=== PATIENT | male | born 1965 | race Hispanic/Latino ===

== ENCOUNTER 2019-09-13 12:30 | Emergency (ER) | payer SELFPAY ==
[2019-09-13 13:16] VITALS: BP 159/87
[2019-09-13] MEDS ORDERED: KEFLEX PO ONE (13:22)
--- NOTE | 2019-09-13 13:30 | Emergency Department Report ---
ED General Adult HPI - General Chief complaint: Wound/Laceration Stated complaint: HAND INJURY Time Seen by Provider: 09/13/19 13:20 Source: patient Mode of arrival: Ambulatory Limitations: No Limitations - History of Present Illness Initial comments: The 3-year-old man states he accidentally stabbed himself with a "daggar" first webspace of his left hand. He stated that he was using the knife to "strip aluminum wires". He states that he did this at home and not at work. He states the amount of external blood loss was not great. However when the dressing was removed that triaged to was "pulsatile bleeding". Patient was brought back to the treatment area immediately. He actually had good hemostasis when I went to see him directly after triage. He did not have any significant bleeding at all. The wound was in the webspace and not with any proximity to significant vessels. -: Sudden Location: left, upper extremity Quality: aching Improves with: none Worsens with: none Associated Symptoms: denies other symptoms - Related Data Previous Rx's Medication Instructions Recorded Last Taken Type cephALEXin [Keflex] 500 mg PO Q6HR #20 capsule 09/13/19 Unknown Rx Allergies Allergy/AdvReac Type Severity Reaction Status Date / Time No Known Allergies Allergy Verified 09/13/19 12:54 ED Review of Systems ROS: Stated complaint: HAND INJURY Other details as noted in HPI Comment: All other systems reviewed and negative ED Past Medical Hx - Past Medical History Previous Medical History?: No - Surgical History Past Surgical History?: No - Social History Smoking Status: Never Smoker Substance Use Type: None - Medications Home Medications: Home Medications Medication Instructions Recorded Confirmed Last Taken Type cephALEXin [Keflex] 500 mg PO Q6HR #20 capsule 09/13/19 Unknown Rx ED Physical Exam - General Limitations: No Limitations General appearance: alert - Head Head exam: Present: atraumatic - Eye Eye exam: Absent: scleral icterus - ENT ENT exam: Present: normal exam - Neck Neck exam: Present: normal inspection - Respiratory Respiratory exam: Present: other (normal work of breathing) - GI/Abdominal GI/Abdominal exam: Absent: distended - Extremities Exam Extremities exam: Present: other (stab wound first left webspace, neurovascular exam of the hand is intact) - Neurological Exam Neurological exam: Present: CN II-XII intact. Absent: motor sensory deficit - Psychiatric Psychiatric exam: Present: normal affect, normal mood - Skin Skin exam: Present: warm, dry, intact, normal color. Absent: rash ED Course Vital Signs 09/13/19 13:16 Pulse Rate 83 Respiratory 16 Rate Blood Pressure 159/87 [Right] O2 Sat by Pulse 98 Oximetry - Reevaluation(s) Reevaluation #1: The wound was well irrigated, anesthetized and 3 3-0 nylon sutures were used for loose closure and hemostasis. The procedure was well tolerated. Patient was begun on antibiotics. 09/13/19 13:30 - Laceration /Wound Repair Left Hand Wound Location: upper extremity Wound Length (cm): 4 Wound's Depth, Shape: into muscle Wound Explored: no foreign body removed Betadine Prep?: Yes Anesthesia: 1% Lidocaine Suture Size/Type: 3:0 Number of Sutures: 3 Layer Closure?: No Sterile Dressing Applied?: Yes ED Medical Decision Making - Radiology Data Radiology results: image reviewed (no foreign body or bony injury seen) Critical care attestation.: If time is entered above; I have spent that time in minutes in the direct care of this critically ill patient, excluding procedure time. ED Disposition Clinical Impression: Laceration of hand Qualifiers: Encounter type: initial encounter Foreign body presence: without foreign body Laterality: left Qualified Code(s): S61.412A - Laceration without foreign body of left hand, initial encounter Hypertension Qualifiers: Hypertension type: unspecified Qualified Code(s): I10 - Essential (primary) hy pertension Disposition: - TO HOME OR SELFCARE Is pt being admited?: No Does the pt Need Aspirin: No Condition: Stable Instructions: Laceration (ED), Suture Care (ED), Hypertension (ED) Additional Instructions: Elevate hand. Watch for signs of redness swelling or drainage. It would be important a few to get the antibiotic prescription filled and begin medication later today. Stab wounds like this are at risk for infection. Therefore, have the wound rechecked in 2 days. The sutures may be removed in 7-9 days. Her blood pressure was somewhat elevated and needs to be checked again daily for the next few days to determine whether or not you need blood pressure medication. Prescriptions: cephALEXin [Keflex] 500 mg PO Q6HR #20 capsule Referrals: [facility] [Provider Group] - 2-3 Days Time of Disposition: 13:33
--- NOTE | 2019-09-13 13:39 | XRay Report ---
LEFT HAND, 2 VIEWS INDICATION: Hand injury. COMPARISON: None. IMPRESSION: No acute osseous injury or joint pathology is identified. There appears to be mild soft tissue swelling particularly of the thenar eminence. No radiopaque foreign body Signer Name: Darien Franklin Jr, MD Signed: 09/13/2019 1:35 PM Workstation Name: [id number]
[2019-09-13] MEDS ORDERED: XYLOCAINE 1% 20 mL ONE (13:43)
[2019-09-13] MEDS ORDERED: BOOSTRIX IM ONE (14:02)
== END 2019-09-13 14:50 | disposition home or self-care (01) ==
LOC: ED 12:30
DX: S61.412A Laceration without foreign body of left hand, initial encounter (principal); W26.0XXA Contact with knife, initial encounter; Y93.89 Activity, other specified; Y92.89 Other specified places as the place of occurrence of the external cause; Y99.8 Other external cause status
CPT/HCPCS: 90471; 90715